=== PATIENT | male | born 1980 | race Caucasian/White ===

== ENCOUNTER 2017-04-02 12:07 | Emergency (ER) | payer OTHER ==
[~2017-04-02] VITALS: Ht 177.8 cm; Wt 95.0 kg
[~2017-04-02 12:07] MED LIST: DOXY100T PO; METH5SOL3 PO; SULF1TAB47 PO
[2017-04-02 12:08] VITALS: BP 133/77; PULSE 70; RESP 20; TEMP 98.6; O2SAT 97
[2017-04-02] MEDS ORDERED: CEPH-460 PO (12:43)
[2017-04-02] MEDS ORDERED: LIDOCAINE HCL 1% 50 ML VIAL INFIL ONE (12:45)
[2017-04-02] MEDS ORDERED: TETANUS/DIPHTHERIA TOXOID ADULT 0.5 ML VIAL IM ONE (12:45)
[2017-04-02] MEDS ORDERED: CEPHALEXIN MONOHYDRATE 500 MG CAP PO ONE (12:45)
--- NOTE | 2017-04-02 12:45 | PD ---
HPI Chief Complaint: Skin Problem Time Seen by Provider: 12:26 Travel History International Travel<30 days: No Contact w/Intl Traveler<30days: No Traveled to known affect area: No History of Present Illness HPI 37 year old male presents to the emergency department for evaluation for evaluation of laceration to his right hand between the first and second digits. This occurred just prior to arrival. He was trying to bend a lower bleed back in shape when he cut his hand. He does not believe his tetanus immunization is up-to-date. Patient denies any other injury. Has no medical problems and takes no medications. 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 SKIN: Focused skin assessment warm/dry. Patient has a 2 cm laceration to the web space between the first and second digits. HEAD: Normocephalic. Atraumatic EYES: No scleral icterus. No injection or drainage. NECK: Supple, trachea midline. No JVD or lymphadenopathy. CARDIOVASCULAR: Regular rate and rhythm without murmurs, gallops, or rubs. RESPIRATORY: Breath sounds equal bilaterally. No accessory muscle use. Lungs sounds are clear to auscultation GASTROINTESTINAL: Abdomen soft, non-tender, nondistended. MUSCULOSKELETAL: No cyanosis, or edema. Patient has full flexion-extension of all digits of the right hand. BACK: Nontender without obvious deformity. No CVA tenderness. Data Data Last Documented VS Vital Signs Date Time Temp Pulse Resp B/P (MAP) Pulse Ox O2 Delivery O2 Flow Rate FiO2 04/02/17 13:23 04/02/17 12:08 98.6 70 20 97 Room Air Orders Orders Tetanus/Diphtheria Tox Adult (Tetanus/Di (04/02/17 12:45) Lidocaine 1% Inj (50 Ml) (Xylocaine 1% I (04/02/17 12:45) Cephalexin (Keflex) (04/02/17 12:45) MDM Medical Decision Making Medical Screen Exam Complete: Yes Emergency Medical Condition: Yes Medical Record Reviewed: Yes Differential Diagnosis Laceration versus abrasion versus contusion Narrative Course 37-year-old male presents to the emergency department for evaluation of a second digits of his right hand. Laceration is superficial andl I'm able see the base laceration. He verbalizes agreement to laceration repair. Tetanus immunization is updated. Patient given first dose of Keflex in the emergency department. Patient is instructed on proper wound care. Patient will be discharged with a prescription for Keflex. Procedures Procedure Narrative LACERATION LOCATION: Between first and second digits of the right hand LENGTH: 2 cm NUMBER OF STITCHES/JUAN JOSÉ: 3 simple interrupted sutures REPAIR: The area of the laceration was prepped with Betadine and sterilely draped. The laceration was infiltrated with 1% lidocaine. The wound was copiously irrigated and explored without evidence of foreign body, tendon injury or neurovascular injury. The wound was closed using 4-0 Prolene. This was a single layer repair. A sterile dressing was applied. The patient was advised to keep the dressing clean and dry. Patient tolerated the procedure well. Diagnosis Primary Impression: Hand laceration Qualified Codes: S61.411A - Laceration without foreign body of right hand, initial encounter Referrals: Primary Care Physician call for appointment Patient Instructions: Care For Your Stitches (ED), General Instructions, Laceration (ED) Additional Instructions: Clean laceration twice daily with soap and water and apply [id number] antibiotic ointment. Taken antibiotic as directed until gone Follow-up with your primary care physician. Return to the emergency department for any acute worsening of symptoms. Med/Other Pt SpecificInfo: Prescription(s) given Scripts Cephalexin (Keflex) 500 Mg Capsule 500 MG PO Q8H for Infection for 7 Days, CAP 0 Refills Prov: Dali Judd 04/02/17 Disposition: 01 DISCHARGE HOME Condition: Stable Dali Judd Apr 02, 2017 12:45
== END 2017-04-02 13:38 | disposition home or self-care (01) ==
LOC: NEPD 12:07
DX: S61.411A Laceration without foreign body of right hand, initial encounter (principal); W26.0XXA Contact with knife, initial encounter; Z23 Encounter for immunization
CPT/HCPCS: 12001; 90471; 90714